=== PATIENT | female | born 1945 | race Caucasian/White ===

== ENCOUNTER 2025-04-19 15:53 | Emergency (ER) | payer OTHER, BC ==
[2025-04-19 16:20] VITALS: BP 103/51; PULSE 75; RESP 18; TEMP 97.5; BMI 24.8
[2025-04-19] MEDS: SODIUM CHLORIDE 0.9% 1000 ML INFUS.BAG IV ONE (16:56)
[2025-04-19 17:09] LABS: ABSOLUTE IMMATURE GRANULOCYTES 0.01 x10^3/uL (0.0-0.031); BASOPHILS # 0.05 x10^3/uL (0.01-0.08); EOSINOPHIL % 1.6 % (0.7-5.8); EOSINOPHILS # 0.11 x10^3/uL (0.04-0.36); MCHC 32.8 g/dl (32.2-35.5); MEAN CELL VOLUME 91.9 fl (79.4-94.8); MEAN PLT VOLUME 11.0 fl (9.4-12.3); MONOCYTE # 0.42 x10^3/uL (0.24-0.86); MONOCYTE % 6.2 % (4.7-12.5); RDW 12.7 % (12.4-16.6)
[2025-04-19 17:20] LABS: ALK PHOS 58.0 U/L (45-117); CO2 24.0 mmol/L (21-32); CREATININE 1.2 mg/dl (0.6-1.3); GLUCOSE,RANDOM 95.0 mg/dl (74-106); SGOT/AST 24.0 U/L (15-37); SGPT/ALT 13.0 U/L (7-52); TOT PROT 7.0 g/dl (6.4-8.2)
== END 2025-04-19 18:17 | disposition home or self-care (01) ==
LOC: FER 15:53
DX: R55 Syncope and collapse (principal); F10.90 Alcohol use, unspecified, uncomplicated; Y90.9 Presence of alcohol in blood, level not specified
CPT/HCPCS: 36415; 80053; 84484; 85025; 93005; 99284-25